=== PATIENT | male | born 1995 | race Asian ===

== ENCOUNTER 2017-01-06 11:23 | Emergency (ER) | payer BC, OTHER ==
[2017-01-06 11:29] VITALS: BP 138/89; PULSE 99; TEMP 98.1; BMI 26.5
--- NOTE | 2017-01-06 11:59 | PDOC ---
History of Present Illness - General Chief Complaint: Injury Stated Complaint: LEFT FACIAL/JAW/EAR PAIN Time Seen by Provider: 01/06/17 11:25 History Source: Patient Exam Limitations: No Limitations - History of Present Illness Initial Comments: 01/06/17 12:09 21y M no pmhx presents with complaint of L facial trauma. the pt wworks for the [employer] and a metal pole slipped and struck him on the L face, pt states he saw a flash of light and has some mild soreness on his left cheek. Pt denies any loc, n/v, vision changes neck pain, back pain, malocclusion, tooth pain, diffuclyt hearing, pain with opening and closing his jaws. Past History - Past Medical History Allergies/Adverse Reactions: Allergies Allergy/AdvReac Type Severity Reaction Status Date / Time No Known Allergies Allergy Verified 01/06/17 11:24 Home Medications: Ambulatory Orders NK [No Known Home Medication] 01/06/17 Other medical history: DENIES - Psycho/Social/Smoking Cessation Hx Anxiety: No Suicidal Ideation: No Smoking History: Current every day smoker Have you smoked in the past 12 months: Yes Number of Cigarettes Smoked Daily: 10 Information on smoking cessation initiated: Yes 'Breaking Loose' booklet given: 01/06/17 Hx Alcohol Use: (occasional) Substance Use Type: None Review of Systems - Review of Systems Able to Perform ROS?: Yes Comments:: 01/06/17 12:11 Constitutional - no reported Fever, Chills, HEENT: +jaw pain no reported vision changes, sore throat Respiratory: no reported cough, sob, hemoptysis Cardiac: no reported chest pain, Abd/GI: no reported nausea, vomiting, Musculskelatal - no reported back pain, joint swelling skin - no reported bruising, erythema, rash neurological: no reported headache, numbness, focal weakness, tingling, ataxia, hematologic: no reported anemia, easy bruising, easy bleeding *Physical Exam - Vital Signs Last Vital Signs Temp Pulse Resp BP Pulse Ox 98.1 F 99 H 18 138/89 99 01/06/17 11:23 01/06/17 11:23 01/06/17 11:23 01/06/17 11:23 01/06/17 11:23 - Physical Exam Comments: 01/06/17 12:12 GENERAL: The patient is awake, alert, and fully oriented, Nontoxic - in no acute distress. HEAD: Normocephalic, mild tendeness/contusion to L cheek/zygoma, nos igns of hemotympanum or battles sign, EYES: extraocular movements intact, sclera anicteric, conjunctiva clear. ENT: Normal voice, Moist mucous membranes, no malocclusion, loose teeth, or focal tendeness NECK: Normal range of motion, supple no mdilne tenderness in cervical/throracic/ lumbar spine EXTREMITIES: Normal range of motion, no edema. No clubbing or cyanosis. No cords, erythema, or tenderness. NEUROLOGICAL: No facial assymetry, Normal speech, PSYCH: Normal mood, normal affect. SKIN: Warm, Dry, normal turgor, Medical Decision Making - Medical Decision Making 01/06/17 12:13 contusion to L face no focal bony tenderness to suggest fracteru will give tylenol and supportive care I discussed the physical exam findings, ancillary test results and final diagnoses with the patient. I answered all of the patient's questions. The patient was satisfied with the care received and felt comfortable with the discharge plan and treatment plan. The patient will call their primary care physician within 24 hours to arrange follow-up and will return to the Emergency Department with any new, persistent or worsening symptoms. *DC/Admit/Observation/Transfer Diagnosis at time of Disposition: Facial trauma Qualifiers: Encounter type: initial encounter Qualified Code(s): S09.93XA - Unspecified injury of face, initial encounter - Discharge Dispostion Disposition: HOME Condition at time of disposition: Improved Admit: No - Referrals Referrals: [facility] [Provider Group] - Patient Instructions Printed Discharge Instructions: DI for Closed Head Injury Additional Instructions: Return to the emergency department immediately with ANY new, persistent or worsening symptoms including worsening pain, numbness/tingling, inability to chew/open your mouth or any other concerns. For the soreness you can use ice and take tylenol. You MUST call and follow up with your doctor tomorrow for further evaluation of your symptoms. Results were discussed with you. Please make sure your doctor reviews the results of your emergency evaluation. Print Language: SLOV[place]
[2017-01-06] MEDS ORDERED: ACETAMINOPHEN 325 MG TABLET (FP) PO ONE (12:08)
[2017-01-06] MEDS ORDERED: ACETAMINOPHEN 325 MG TABLET (FP) ONE (12:09)
== END 2017-01-06 12:36 | disposition home or self-care (01) ==
LOC: FER 11:23
DX: S09.93XA Unspecified injury of face, initial encounter (principal); W22.8XXA Striking against or struck by other objects, initial encounter; Y93.89 Activity, other specified; Y92.9 Unspecified place or not applicable; Y99.0 Civilian activity done for income or pay; F17.210 Nicotine dependence, cigarettes, uncomplicated
CPT/HCPCS: 99283-25

== ENCOUNTER 2022-04-03 10:52 | Emergency (ER) | payer OTHER ==
[2022-04-03 11:19] VITALS: BP 118/76; PULSE 66; RESP 16; TEMP 98.7; BMI 25.8
[2022-04-03] MEDS ORDERED: IBUPROFEN 400 MG TABLET (FP) PO ONE ×2 (13:23→13:38)
== END 2022-04-03 13:49 | disposition home or self-care (01) ==
LOC: FER 10:52
DX: S86.011A Strain of right Achilles tendon, initial encounter (principal)
CPT/HCPCS: 73610-TC-RT-FY; 99284-25

== ENCOUNTER 2022-04-24 06:16 | Day surgery (SDC) | payer OTHER ==
[2022-04-08 16:23] VITALS: BMI 25.8
[2022-04-24] MEDS ORDERED: ROPIVACAINE HCL/PF 100 MG/20 ML VIAL ONE (07:14)
[2022-04-24] MEDS ORDERED: MIDAZOLAM HCL 2 MG/2 ML SINGLE DOSE VIAL ONE (07:14)
[2022-04-24] MEDS ORDERED: ROCURONIUM BROMIDE 50 MG/5 ML SYRINGE ONE (07:25)
[2022-04-24] MEDS ORDERED: PROPOFOL 40 ML ONE (07:25)
[2022-04-24] MEDS ORDERED: NEOSTIGMINE METHYLSULFATE 0.5 MG/1 ML - 10 ML MDV ONE (08:29)
[2022-04-24 09:14] VITALS: TEMP 97.7
[2022-04-24 10:37] VITALS: RESP 18
[2022-04-24 11:20] VITALS: BP 131/69; PULSE 57
== END 2022-04-24 11:15 | disposition home or self-care (01) ==
LOC: FASU 06:16
PROVIDERS: ATTEND Orthopaedic Surgery Sports Medicine
PROC: 0LQN0ZZ Repair Right Lower Leg Tendon, Open Approach (ICD-10-PCS; principal; 2022-04-24 08:04)
DX: S86.011A Strain of right Achilles tendon, initial encounter (principal); X50.1XXA Overexertion from prolonged static or awkward postures, initial encounter; Y93.89 Activity, other specified; Y92.89 Other specified places as the place of occurrence of the external cause
CPT/HCPCS: 94760